=== PATIENT | female | born 1945 | race Caucasian/White ===

== ENCOUNTER 2017-03-11 09:45 | Observation (INO) | payer OTHER ==
[2017-03-11] MEDS ORDERED: NS 1,000 ML IV ONE ×2 (10:14→15:20)
[2017-03-11] MEDS ORDERED: ONDANSETRON 4 MG/2 ML VIAL IVP ONE (10:18)
--- NOTE | 2017-03-11 10:21 | EDPHY ---
H & P Smoking Status: Never smoked Time Seen by Provider: 03/11/17 10:07 HPI/ROS: CHIEF COMPLAINT: Vomiting, diarrhea, abdominal pain HISTORY OF PRESENT ILLNESS: 72-year-old female presents to the emergency department with vomiting, diarrhea and abdominal pain that began yesterday morning. The patient initially started with diarrhea and tried taking Pepto- Bismol. She has also felt nauseous and has been vomiting. She states initially the pain was more generalized abdominal pain and now she feels more lower abdominal pain. She states that the pain in her abdomen is not "as bad" as it was yesterday although it has not resolved. She states that she just does not feel right. She feels "depleted". No fevers or chills. No known ill contacts. No chest pain or difficulty breathing. She does have a mild headache. No back pain. No urinary symptoms. REVIEW OF SYSTEMS: Constitutional: No fever, no chills. Eyes: No double or blurry vision. ENT: No sore throat. Respiratory: No cough, no shortness of breath. Cardiac: No chest pain. Gastrointestinal: As above Genitourinary: No dysuria. Musculoskeletal: No neck or back pain. Skin: No rashes. Neurological: headache. (BrennanSavanah Downey) Past Medical/Surgical History: Breast cancer x2, bilateral mastectomy, [id number] (Evelyn Amina Shayan) Social History: , visiting from [place] (Evelyn Amina Shayan) Physical Exam: General Appearance: Alert, no distress. Afebrile. No apparent distress. Eyes: Pupils equal and round. Extraocular motions are all intact. ENT: Mouth: Mucous membranes moist. Respiratory: No wheezing, rhonchi, or rales, lungs are clear to auscultation. Cardiovascular: Regular rate and rhythm. Gastrointestinal: Abdomen is soft. Bowel sounds are present. She has mild tenderness with palpation in the mid abdomen as well as in the right and left lower quadrant. There is no rebound, guarding or masses noted. Neurological: Alert and oriented x 3, cranial nerves II through XII grossly intact Skin: Warm and dry, no rashes. Musculoskeletal: Nontender to palpate along the cervical, thoracic or lumbar spine. Neck is supple. Extremities: Full range of motion and no peripheral edema. Psychiatric: Patient is oriented X 3, there is no agitation. (Donna Aminrina M) Constitutional: Initial Vital Signs Temperature (C) 36.8 C 03/11/17 09:49 Heart Rate 103 H 03/11/17 09:49 Respiratory Rate 16 03/11/17 09:49 Blood Pressure 172/110 H 03/11/17 09:49 O2 Sat (%) 96 03/11/17 09:49 O2 Delivery Mode Room Air Allergies/Adverse Reactions: No Known Allergies Allergy (Unverified 03/11/17 09:49) Home Medications: Medication Instructions Recorded Albuterol Sulfate [Ventolin Hfa] 1 puffs IH DAILY PRN 03/11/17 Aspirin [Aspirin 325 mg (*)] 325 mg PO DAILY PRN 03/11/17 Calcium Carbonate [Calcium] 1,500 mg PO DAILY 03/11/17 Cholecalciferol Vit D3 [Vitamin D3 3,000 units PO DAILY 03/11/17 (*)] Cyanocobalamin (Vitamin B-12) 500 mcg PO DAILY 03/11/17 [Vitamin B-12] Denosumab [Prolia] 60 mg SQ ONCE 03/11/17 Fluticasone Hfa 110 Mcg [Flovent 2 puffs IH DAILY PRN 03/11/17 110 MCG Hfa MDI (*)] Loratadine [Claritin 10 mg] 10 mg PO DAILY PRN 03/11/17 Multivitamins [Multivitamin (*)] 1 each PO DAILY 03/11/17 Ondansetron Odt [Zofran Odt 4 mg 4 mg PO Q4HRS PRN #8 tab 03/12/17 (*)] Medical Decision Making - Diagnostics Imaging: Discussed imaging studies w/ call center receptionist Radiologist ED Course/Re-evaluation: 72-year-old female presents to the emergency department with abdominal pain, nausea vomiting and diarrhea. An IV was established the patient was found to have a sodium of 126. Her renal function was normal. She had a CT scan of her abdomen and pelvis which was unremarkable with the exception of her gallbladder showing some thickening. The radiologist recommended obtaining gallbladder ultrasound. Gallbladder ultrasound was within normal limits. Patient continued to feel nauseous. She had IV normal saline as well as IV Zofran. I recommended admission to the hospital given her hyponatremia and continues to nausea and abdominal pain. Patient verbalized understanding and agreed. Case was discussed with Dr. Vernon Fuller, secondary supervising physician, did not directly evaluate the patient but agrees with treatment and plan. (Savanah Amin) I did not see this patient while she was in the emergency department. However her care was discussed with the PA while the patient was in the department. I agree with treatment plan and management (Vernon Fuller) Differential Diagnosis: Including but not limited to gastroenteritis, dehydration, electrolyte abnormality, acute appendicitis, bowel obstruction, carcinoma (Savanah Amin) - Data Points Laboratory Results: Laboratory Results 03/11/17 10:10 03/11/17 10:10 Medications Given: Discontinued Medications Acetaminophen (Tylenol) 650 mg PO Q4HRS PRN PRN Reason: Pain, Mild/Fever, Can Take PO Stop: 09/07/17 14:04 Last Admin: 03/12/17 02:38 Dose: 650 mg Calcium Carbonate (Oyster Shell Calcium) 1,500 mg PO DAILY SCOTT Stop: 09/08/17 08:59 Last Admin: 03/12/17 11:17 Dose: Not Given Cholecalciferol (Vitamin D) 3,000 units PO DAILY SCOTT Stop: 09/08/17 08:59 Last Admin: 03/12/17 11:16 Dose: Not Given Enoxaparin Sodium (Lovenox) 40 mg SC DAILY SCOTT Stop: 09/08/17 08:59 Last Admin: 03/12/17 07:56 Dose: 40 mg Sodium Chloride (Ns) 1,000 mls @ 0 mls/hr IV ONCE ONE PRN Reason: Wide Open Stop: 03/11/17 10:15 Last Admin: 03/11/17 10:16 Dose: 1,000 mls Sodium Chloride (Ns) 1,000 mls @ 150 mls/hr IV CONT SCOTT Stop: 09/07/17 14:14 Last Admin: 03/11/17 16:36 Dose: 1,000 mls Sodium Chloride (Ns) 1,000 mls @ 3,000 mls/hr IV ONCE ONE Stop: 03/11/17 15:39 Last Admin: 03/11/17 15:33 Dose: 1,000 mls Multivitamins (Tab-A-Lior) 1 each PO DAILY SCOTT Stop: 09/08/17 08:59 Last Admin: 03/12/17 11:17 Dose: Not Given Ondansetron HCl (Zofran) 4 mg IVP EDNOW ONE Stop: 03/11/17 10:19 Last Admin: 03/11/17 10:24 Dose: 4 mg Ondansetron HCl (Zofran) 4 mg IVP Q4HRS PRN PRN Reason: Nausea/Vomiting, Can't Take PO Stop: 09/07/17 14:04 Last Admin: 03/12/17 02:38 Dose: 4 mg Vitamin B Complex (Vitamin B12) 500 mcg PO DAILY SCOTT Stop: 09/08/17 08:59 Last Admin: 03/12/17 11:17 Dose: Not Given Departure - Departure Disposition: [facility] Acute Clinical Impression: Acute gastroenteritis, Hyponatremia Abdominal pain Qualifiers: Abdominal location: lower abdomen, unspecified Qualified Code(s): R10.30 - Lower abdominal pain, unspecified Condition: Good
[2017-03-11 10:22] LABS: % IMMATURE GRANULYOCYTES 0.3 % (0.0-1.1); ABSOLUTE IMMATURE GRANULOCYTES 0.02 10^3/uL (0.00-0.10); ADD DIFF? NO; ADD MORPH? NO; ADD SCAN? NO; ATYPICAL LYMPHOCYTE FLAG 10 (0-99); FRAGMENT RBC FLAG 0 (0-99); HEMATOCRIT 40.7 % (38.0-47.0); HEMOGLOBIN 13.8 g/dL (12.6-16.3); LEFT SHIFT FLG 0 (0-99); LIPEMIA HEMOLYSIS FLAG 90 (0-99); MEAN CELL HEMOGLOBIN 30.3 pg (27.9-34.1); MEAN CELL HEMOGLOBIN CONCENTR. 33.9 g/dL (32.4-36.7); MEAN CELL VOLUME 89.3 fL (81.5-99.8); MEAN PLATELET VOLUME 9.8 fL (8.7-11.7); PLATELET CLUMPS FLAG 0 (0-99); PLATELET COUNT 284 10^3/uL (150-400); RED BLOOD CELL COUNT 4.56 10^6/uL (4.18-5.33); RED CELL DISTRIBUTION WIDTH 12.8 % (11.5-15.2)
[2017-03-11 10:46] LABS: COLOR YELLOW; LEUKOCYTE ESTERASE,URINE NEGATIVE (NEGATIVE); NITRITE,URINE NEGATIVE (NEGATIVE)
[2017-03-11 11:15] LABS: ALANINE AMINOTRANSFERASE 29 IU/L (9-52); ALBUMIN 4.6 g/dL (3.5-5.0); ALKALINE PHOSPHATASE 61 IU/L (38-126); ANION GAP 13 mEq/L (8-16); ASPARTATE AMINOTRANSFERASE 34 IU/L (14-46); BILIRUBIN,TOTAL 0.8 mg/dL (0.1-1.4); BILIRUBIN-CONJUGATED 0.3 mg/dL (0.0-0.5); BILIRUBIN-UNCONJUGATED 0.5 mg/dL (0.0-1.1); CALCIUM 9.9 mg/dL (8.5-10.4); CARBON DIOXIDE 23 mEq/l (22-31); CHLORIDE 90 mEq/L (97-110); CREATININE 0.6 mg/dL (0.6-1.0); GLOMERULAR FILTRATION RATE > 60; GLUCOSE 133 mg/dL (70-100); POTASSIUM 3.9 mEq/L (3.5-5.2); SODIUM 126 mEq/L (134-144); TOTAL PROTEIN 7.9 g/dL (6.3-8.2)
[2017-03-11 11:16] LABS: BACTERIA TRACE /hpf (NONE SEEN); MUCUS TRACE /lpf (NONE-1+)
[2017-03-11] MEDS ORDERED: IOPAMIDOL (ISOVUE-300) 100 ML BTL ONE (11:28)
--- NOTE | 2017-03-11 13:31 | CPEKG ---
Heart Rate: 95 RR Interval: 632 P-R Interval: 135 QRSD Interval: 84 QT Interval: 364 QTC Interval: 458 P Miramonte: 56 QRS Miramonte: 56 T Wave Miramonte: -50 EKG Severity - NORMAL ECG - EKG Impression: SINUS RHYTHM Electronically Signed By: Vernon Fuller 11-Mar-2017 15:16:04
[2017-03-11] MEDS ORDERED: ZOLPIDEM TARTRATE 5 MG TAB PO PRN (14:05)
[2017-03-11] MEDS ORDERED: ONDANSETRON DISINTEGRATING 4 MG TAB PO PRN (14:05)
[2017-03-11] MEDS ORDERED: PROMETHAZINE HCL 25 MG/ML INJ IVP PRN (14:05)
--- NOTE | 2017-03-11 14:09 | PDGENHP ---
History and Physical History and Physical: CC: nausea vomiting diarrhea with some crampy lower abdominal discomfort HISTORY: this patient was well until 2 nights ago when she started having loose diarrhea with no blood. There was some mild cramping in the lower abdomen going with this. This symptom has persisted since then with a moderately large number of stools per day. Last night she started having vomiting which was fairly frequent 5 episodes last evening and continued vomiting through the day today. She has been trying to keep oral fluids in with Pedialyte and other fluids and has been trying to use antidiarrheals. A continues to be no sign of blood and there has been no fever symptoms. In the ER she was assessed and found to be afebrile, and was given an today the medics and fluids but continued to be fairly symptomatic so is now admitted to the hospital. There are no skin rashes, joint symptoms, sore throat, ocular symptoms, respiratory symptoms. There are no family members or associates with similar symptoms. She did not eat any single specific says suspected food that might be causative. She has never had an episode like this before. She has no significant travel history other than that she is here visiting from [place]. There is no history of any kind of chronic bowel syndrome ulcers or other digestive illness. Notably there is no epigastric or right upper quadrant pain, scapular area pain , chest pain, or other pain in areas were 1 would expect to note symptoms related to gallstone or biliary disease ROS: A comprehensive 10 system review revealed no other significant findings PAST MEDICAL HISTORY: Breast cancer status post mastectomies, expected to be cured Sleep apnea uses chronic CPAP SVT status post successful ablation therapy Some chronic dyspnea of uncertain etiology, minimally symptomatic FAMILY MEDICAL HISTORY: No bowel or digestive illnesses in the family SOCIAL HISTORY: lives with her in [place] Was here for a family reunion which she missed for her current acute illness MEDICATIONS: The patients list has been reconciled by our clinical pharmacist in the EMR. I have reviewed the list and ordered appropriate medicines. PHYSICAL EXAMINATION: Vital Signs: some mild hypertension, otherwise stable without fever Carpenter Inspector: sinus rhythm Examination: General: alert, oriented, good mentation, relaxed Skin: warm, dry, good color, no rash HEENT: normal Neck: no mass or jvd Resps: relaxed Lungs: clear breath sounds Heart: regular, no murmur Abdomen: soft, nondistended, nontender, +BS, no mass Upper Extremities: normal Lower Extremities: no edema, warm No Bleeding or bruising Neurologic: normal speech/language, normal partnership manager, no focal weakness IV site: looks normal LABORATORY DATA: sodium 126, otherwise chemistries unremarkable and CBC is unremarkable RADIOLOGY STUDIES: -CT SCAN OF ABDOMEN DONE IN THE ER: on my review of the images there are no particular concerning abnormalities. The radiologist as mentioned possible mild thickening of the gallbladder wall but this certainly would not explain her syndrome. Her pancreas looks normal to me. - ABDOMINAL ULTRASOUND DONE IN THE ER: Gallstones are present and is on the CT there is borderline thickening of the gallbladder wall chronic the radiologist. I do not see any fluid around the gallbladder or any other inflammatory changes. Once again gallstones or biliary disease would not explain her acute syndrome 12 LEAD EKG, my interpretation of the tracing: normal sinus rhythm, Q-wave is present, otherwise unremarkable ASSESSMENT: - acute gastroenteritis likely viral -Acute dehydration due to above -Hyponatremia due to GI losses, In the setting Of hypovolemia -Presence of gallstones and questionable thickening of gallbladder wall are not felt to be causative of her acute presenting syndrome, and are of uncertain clinical significance at this time PLANS: - further IV fluid bolus and overnight IV hydration - observation status for now -It is expected for her symptoms to resolve spontaneously but will follow closely her clinical course. I expect she will be able to leave by tomorrow I have reviewed the patient's case in detail with Savanah Amni of the ER
[2017-03-11] MEDS: NS 1,000 ML IV SCH ×2 (14:37→16:36)
[2017-03-11 18:04] LABS: ANION GAP 12 mEq/L (8-16); CALCIUM 8.8 mg/dL (8.5-10.4); CARBON DIOXIDE 22 mEq/l (22-31); CHLORIDE 105 mEq/L (97-110); CREATININE 0.6 mg/dL (0.6-1.0); GLOMERULAR FILTRATION RATE > 60; GLUCOSE 126 mg/dL (70-100); POTASSIUM 3.4 mEq/L (3.5-5.2); SODIUM 139 mEq/L (134-144)
[2017-03-11] MEDS: ONDANSETRON 4 MG/2 ML VIAL IVP PRN (19:04)
[2017-03-11] MEDS: ACETAMINOPHEN 325 MG TAB PO PRN (20:51)
[2017-03-12] MEDS: ACETAMINOPHEN 325 MG TAB PO PRN (02:38)
[2017-03-12] MEDS: ONDANSETRON 4 MG/2 ML VIAL IVP PRN (02:38)
[2017-03-12 04:43] LABS: ANION GAP 7 mEq/L (8-16); CALCIUM 8.5 mg/dL (8.5-10.4); CARBON DIOXIDE 24 mEq/l (22-31); CHLORIDE 108 mEq/L (97-110); CREATININE 0.7 mg/dL (0.6-1.0); GLOMERULAR FILTRATION RATE > 60; GLUCOSE 89 mg/dL (70-100); POTASSIUM 3.7 mEq/L (3.5-5.2); SODIUM 139 mEq/L (134-144)
[2017-03-12] MEDS ORDERED: ALBUTEROL INH PREPACK MDI TAKEHOME PRN (08:28)
[2017-03-12] MEDS ORDERED: ASPIRIN 325 MG TAB PO PRN (08:28)
[2017-03-12] MEDS ORDERED: NON-FORMULARY NEW DRUG (Loratadine [Claritin 10 Mg] 10 MG) PO PRN (08:28)
[2017-03-12] MEDS ORDERED: FLUTICASONE HFA 110 MCG MDI IH PRN (08:28)
[2017-03-12] MEDS ORDERED: ALBUTEROL 200 PUFFS/18 GM MDI IH PRN (08:43)
[2017-03-12] MEDS ORDERED: CETIRIZINE 10 MG TAB PO PRN (08:46)
[2017-03-12] MEDS ORDERED: CYANO/VITAMIN B12 1000 MCG TAB PO SCH (09:00)
[2017-03-12] MEDS ORDERED: MULTIVITAMINS 1 EACH TAB PO SCH (09:00)
[2017-03-12] MEDS ORDERED: CALCIUM CARBONATE 1500 MG PO SCH (09:00)
[2017-03-12] MEDS ORDERED: ENOXAPARIN 40 MG/0.4 ML SYR SC SCH (09:00)
[2017-03-12] MEDS ORDERED: CYANOCOBALAMIN 500 MCG PO SCH (09:00)
[2017-03-12] MEDS ORDERED: CALCIUM CARBONATE 500 MG TAB PO SCH (09:00)
[2017-03-12] MEDS ORDERED: CHOLECALCIFEROL VIT D3 1,000 UNITS TAB PO SCH (09:00)
--- NOTE | 2017-03-12 09:15 | PDDCSUM ---
Discharge Summary Discharge Summary: DISCHARGE DIAGNOSES: -ACUTE GASTROENTERITIS -INTRACTABLE NAUSEA VOMITING -DEHDYRATION -HYPONATREMIA IN HYPOVOLEMIC SETTING -HISTORY OF BREAST CANCER COMPLICATIONS: NONE NONE STUDIES: CT ABDOMEN ABDOMINAL US HOSPITAL COURSE: This patient traveling from [place] had onset of diarrhea with crampy lower abdominal pain, followed by onset of nausea and vomiting. There as no fever, no bleeding, and no symptoms outside the digestive system. She came in to the Er with dehydration, hyponatremia, and ongoing gi fluid losses. She was observed in the hospital, and treated with IV fluids and antiemetics. Her symptoms resolved nicely overnight, and she was able to take po fluids well and began eating some solid food. Her sodium corrected well. She was stable for discharge. MEDICATION CHANGES: ADDITION OF PRN ZOFRAN FOR NAUSEA FOLLOW UP: with her primary care physician as needed for ongoing symptoms
[2017-03-12 10:58] VITALS: BP 168/94; PULSE 103; RESP 16; TEMP 98.3; O2SAT 95
[2017-03-19] MEDS ORDERED: Denosumab [Prolia] 60 MG SQ ONE (08:30)
== END 2017-03-12 11:58 | disposition home or self-care (01) ==
LOC: F3E 14:11
PROVIDERS: ADMIT Internal Medicine; ATTEND Internal Medicine
DX: K52.9 Noninfective gastroenteritis and colitis, unspecified (principal); E87.1 Hypo-osmolality and hyponatremia; E86.0 Dehydration; K80.20 Calculus of gallbladder without cholecystitis without obstruction; R06.00 Dyspnea, unspecified; G47.33 Obstructive sleep apnea (adult) (pediatric); Z85.3 Personal history of malignant neoplasm of breast; Z90.13 Acquired absence of bilateral breasts and nipples
CPT/HCPCS: 74177; 76705; 93005; G0378; J1650; J2405; Q9967; 96374